=== PATIENT | male | born 1955 | race Caucasian/White ===

== ENCOUNTER 2017-11-17 | Emergency (ER) | payer BC ==
--- NOTE | 2017-11-17 01:10 | EDM.PDOC ---
ED HPI GENERAL MEDICAL PROBLEM - General Chief Complaint: Laceration Stated Complaint: head laceration Time Seen by Provider: 11/17/17 00:15 Source of Information: Reports: Patient History Limitations: Reports: No Limitations - History of Present Illness INITIAL COMMENTS - FREE TEXT/NARRATIVE: 62 YO WM presents to ER after slip and fall while walking on ice. Pt reports his feet slipped out from under him landing on his back and striking his head on pavement. Pt denies any loss of consciousness, but states he was dazed and dizzy for a minute. Pt currently denies any neck or back pain. Pt has a 9cm laceration to back of head. Pt reports headache is localized to area of back of head around the wound. Pt denies any other injury at this time. Pt is alert and oriented x 4. Onset: Today Onset Date: 11/16/17 Onset Time: 23:30 Duration: Hour(s): (1) Location: Reports: Head Quality: Reports: Ache Severity: Mild Improves with: Reports: None Worsens with: Reports: None Associated Symptoms: Reports: No Other Symptoms - Related Data Allergies Allergy/AdvReac Type Severity Reaction Status Date / Time No Known Drug Allergies Allergy none Verified 11/17/17 00:48 Home Meds: Home Meds Ezetimibe/Simvastatin [Vytorin 10-20 mg Tablet] 1 tab PO DAILY 11/17/17 [History ] Glimepiride [Amaryl] 4 mg PO BID 11/17/17 [History] Hydrochlorothiazide 12.5 mg PO DAILY 11/17/17 [History] Labetalol HCl [Labetalol] 100 mg PO TID 11/17/17 [History] Lisinopril [Lisinopril] 40 mg PO BID 11/17/17 [History] Pioglitazone [Actos] 30 mg PO DAILY 11/17/17 [History] SitaGLIPtin [Januvia] 100 mg PO DAILY 11/17/17 [History] amLODIPine [Norvasc] 10 mg PO DAILY 11/17/17 [History] metFORMIN HCl [Metformin HCl] 1,000 mg PO BID 11/17/17 [History] ED ROS GENERAL - Review of Systems Review Of Systems: See Below Constitutional: Reports: No Symptoms HEENT: Reports: No Symptoms Respiratory: Reports: No Symptoms Cardiovascular: Reports: No Symptoms Endocrine: Reports: No Symptoms GI/Abdominal: Reports: No Symptoms : Reports: No Symptoms Musculoskeletal: Reports: No Symptoms Skin: Reports: No Symptoms, Wound (9cm vertical laceration to occipital area of scalp) Neurological: Reports: No Symptoms Psychiatric: Reports: No Symptoms Hematologic/Lymphatic: Reports: No Symptoms Immunologic: Reports: No Symptoms ED EXAM, SKIN/RASH Exam: See Below Exam Limited By: No Limitations General Appearance: Alert, WD/WN, No Apparent Distress Eye Exam: Bilateral Eye: PERRL Ears: Normal External Exam, Normal Canal, Hearing Grossly Normal, Normal TMs Nose: Normal Inspection, Normal Mucosa, No Blood Throat/Mouth: Normal Inspection, Normal Lips, Normal Teeth, Normal Gums, Normal Oropharynx, Normal Voice, No Airway Compromise Neck: Normal Inspection, Supple, Non-Tender, Full Range of Motion Respiratory/Chest: No Respiratory Distress, Lungs Clear, Normal Breath Sounds, No Accessory Muscle Use, Chest Non-Tender Cardiovascular: Normal Peripheral Pulses, Regular Rate, Rhythm, No Edema, No Gallop, No JVD, No Murmur, No Rub GI/Abdominal: Normal Bowel Sounds, Soft, Non-Tender, No Organomegaly, No Distention, No Abnormal Bruit, No Mass Back Exam: Normal Inspection, Full Range of Motion, NT Extremities: Normal Inspection, Normal Range of Motion, Non-Tender, No Pedal Edema, Normal Capillary Refill Neurological: Alert, Oriented, CN II-XII Intact, Normal Cognition, Normal Gait, Normal Reflexes, No Motor/Sensory Deficits Psychiatric: Normal Affect, Normal Mood Skin: Warm, Dry, Intact, Normal Color, No Rash, Wound/Incision (9cm laceration to back of scalp) ED SKIN PROCEDURES - Laceration/Wound Repair Mid-Posterior Head Lac/Wound length In cm: 9 Appearance: Superficial, Clean Distal NVT: Neuro & Vascular Intact Skin Prep: Providone-Iodine (Betadine), Saline Exploration/Debridement/Repair: Wound Explored Closed with: Dae # of Sutures: 9 Tetanus Status Addressed: Yes Complications: No Course - Vital Signs Last Recorded V/S: Last Vital Signs Temp 36.7 C 11/17/17 00:36 Pulse 83 11/17/17 00:36 Resp 22 H 11/17/17 00:36 BP 157/78 H 11/17/17 00:36 Pulse Ox 94 L 11/17/17 00:36 - Orders/Labs/Meds Orders: Active Orders 24 hr Category Date Time Status Head wo Cont [CT] Stat Exams 11/17/17 00:48 Ordered - Radiology Interpretation Free Text/Narrative:: CT head- NAD Departure - Departure Time of Disposition: 02:00 Disposition: Home, Self-Care 01 Condition: Good Clinical Impression: Head injury Qualifiers: Encounter type: initial encounter Qualified Code(s): S09.90XA - Unspecified injury of head, initial encounter Scalp laceration Qualifiers: Encounter type: initial encounter Qualified Code(s): S01.01XA - Laceration without foreign body of scalp, initial encounter - Discharge Information Instructions: Head Injury, Adult, Laceration Care, Adult, [id number], Stitches, Kincaid, or Adhesive Wound Closure, [id number] Forms: ED Department Discharge - My Orders Last 24 Hours: My Active Orders 11/17/17 00:48 Head wo Cont [CT] Stat - Assessment/Plan Last 24 Hours: My Active Orders 11/17/17 00:48 Head wo Cont [CT] Stat Assessment:: 1. 9cm posterior scalp laceration 2. minor head injury Plan: 1. discharge home 2. head injury precautions 3. wound care instructions 4. staple removal 7-10 days 5. return to ER for worsening symptoms
== END 2017-11-17 02:00 | disposition home or self-care (01) ==
LOC: KA.ED
DX: S01.01XA Laceration without foreign body of scalp, initial encounter (principal); S09.90XA Unspecified injury of head, initial encounter; Z79.899 Other long term (current) drug therapy; W00.2XXA Other fall from one level to another due to ice and snow, initial encounter
CPT/HCPCS: 12004; 70450; 99283